=== PATIENT | female | born 1945 | race Caucasian/White ===

== ENCOUNTER 2016-03-30 10:56 | Observation (INO) | payer OTHER ==
[~2016-03-30] VITALS: Ht 154.9 cm; Wt 145.1 kg
[~2016-03-30 10:56] MED LIST: CEFAZOLIN 1000MG/55 ML D5W IV SCH; CEFAZOLIN 3000 MG/65 ML D5W IV SCH; PATIENT'S ALLERGY INFO NEEDS ENTERED SCH
[2016-03-30 11:12] VITALS: BP 120/78; PULSE 119; TEMP 36.4; O2SAT 96; BMI 61.0
[2016-03-30] MEDS ORDERED: GABA1CAP5 PO (11:50)
[2016-03-30] MEDS ORDERED: MAGN400T6 PO (11:50)
[2016-03-30] MEDS ORDERED: INSDGI SC ×2 (11:50)
[2016-03-30] MEDS ORDERED: POTA10CA28 PO (11:50)
[2016-03-30] MEDS ORDERED: DILT240C57 PO (11:50)
[2016-03-30] MEDS ORDERED: METO-217 PO (11:50)
[2016-03-30] MEDS ORDERED: ERGO500037 PO (11:50)
[2016-03-30] MEDS ORDERED: vitamin b12 INJ (11:50)
[2016-03-30] MEDS ORDERED: SACC250C11 PO (11:50)
[2016-03-30] MEDS ORDERED: MULTTAB58 PO (11:50)
[2016-03-30] MEDS ORDERED: ELQ25 (11:50)
[2016-03-30] MEDS ORDERED: ATOR-24 PO (11:50)
[2016-03-30] MEDS ORDERED: CALC500C70 PO (11:50)
[2016-03-30] MEDS ORDERED: DIPH-416 PO (11:50)
[2016-03-30] MEDS ORDERED: NTRGSL/4 UT (11:50)
[2016-03-30] MEDS ORDERED: ACET-1256 PO (11:50)
--- NOTE | 2016-03-30 12:00 | History & Physical Bridge Note ---
H&P Re-Evaluation Bridge Note: I have examined the patient, reviewed the History & Physical and in the interval since the performance of the History & Physical I have noted the following changes of clinical significance: No changes noted
--- NOTE | 2016-03-30 12:00 | Procedure Note ---
Pre-Mod Sedation Assessment General Date of Moderate Sedation: Mar 30, 2016. Vital Signs: Vital Signs Past 12 Hours Date Time Temp Pulse Resp B/P Pulse Ox O2 Delivery O2 Flow Rate FiO2 03/30/16 11:12 36.4 119 18 120/78 96 Room Air Review Cardiovascular: + tachycardia, + irregularly irregular Abdomen: soft Lungs: lungs clear Airway Class: II Pre-Sedation Airway Assessment Oral Cavity: Dentures Able to Visualize Vocal Cords: No Short Thick Neck: Yes Hx of Sleep Apnea: Yes Smoking Status: Former Smoker Mallampati Classification: Class II ASA Classification: Class II Procedure Planning Contraindications-for Mod Sed: None Yes Notes The planned sedation has been discussed with the patient and consent obtained. I have identified the patient, determined the appropriateness of sedation and have assessed the patient immediately prior to the procedure. All medicine(s) and interventions are by my order.
[2016-03-30] MEDS ORDERED: CEFAZOLIN IV 3,000 MG/65 ML D5W IV ONE (12:55)
[2016-03-30] MEDS ORDERED: LIDOCAINE HCL 1% 20 ML VIAL ONE (14:29)
[2016-03-30] MEDS ORDERED: BUPIVACAINE 0.5 % 5 MG/1 ML MPF 30ML VIAL ONE (14:29)
[2016-03-30] MEDS ORDERED: BACITRACIN 50000 UNIT VIAL ONE (14:29)
[2016-03-30] MEDS ORDERED: MIDAZOLAM HCL 5 MG/ML 1 ML VIAL ONE ×3 (14:58→17:51)
[2016-03-30] MEDS ORDERED: METOPROLOL TARTRATE 1 MG/ML VIAL ONE ×2 (14:59→15:24)
[2016-03-30] MEDS ORDERED: FENTANYL CITRATE INJ 50 MCG/1 ML 2 ML VIAL ONE ×4 (14:59→17:51)
--- NOTE | 2016-03-30 18:39 | Procedure Note ---
Post-Mod Sedation Assessment General Date of Moderate Sedation Mar 30, 2016. Vital Signs: Vital Signs Past 12 Hours Date Time Temp Pulse Resp B/P Pulse Ox O2 Delivery O2 Flow Rate FiO2 03/30/16 11:12 36.4 119 18 120/78 96 Room Air Review - Discharge Criteria Vital Signs Stable: Yes Alert/Oriented/Conversant: Yes Returned to Baseline Mental St: Yes Nausea Absent/Minimal: Yes Pain/Discomfort/Absent/Minimal: Yes Normal/Baseline Respirations: Yes Active Bleeding?: No Pt Received D/C Instructions: N/A Prescriptions Given: None Specific Proced. D/C Criteria Distal Pulses Present (Cardiac: Yes Groin site assessed-Card Cath: Yes Voided Prior To Discharge: N/A Discharged Patients Adult Escort/Transportation: N/A
[2016-03-30] MEDS ORDERED: ACETAMINOPHEN 325 MG TAB PO PRN (18:45)
[2016-03-30] MEDS ORDERED: NITROGLYCERIN 0.4 MG SL PER TAB CHARGE UT SCH (18:45)
--- NOTE | 2016-03-30 18:48 | [facility] Post Operative Brief Note ---
Immediate Operative Summary Operative Date Mar 30, 2016. Pre-Operative Diagnosis permanent af with rvr refractory to AVN blockers Post-Operative Diagnosis same; possible AVN modification Procedure(s) Performed single permanent pacemaker rate responsive under fluroscopic guidance; unsuccessful AVN ablation possible AVN modification Surgeon johann stark Inbound Ingredient Logistics Specialist Surgeon(s) none Estimated Blood Loss <20cc Findings none Fluids (cc crystalloids) 300cc Specimens none Drains none Anesthesia 14mg versed and 350mcg fentanyl Complication(s) None Disposition PCU
[2016-03-30] MEDS ORDERED: GLUCOSE 10 TABS/TUBE PO PRN (19:00)
[2016-03-30] MEDS ORDERED: GLUCOSE 40% GEL 15 GM TUBE PO PRN (19:00)
[2016-03-30] MEDS ORDERED: GLUCAGON FOR INJ 1 MG VIAL SQ PRN (19:00)
[2016-03-30] MEDS ORDERED: DEXTROSE 50% 50 ML SYR IV PRN (19:00)
[2016-03-30 19:15] VITALS: BP 129/79; TEMP 37.4; O2SAT 97; Ht 154.9 cm; Wt 145.1 kg
[2016-03-30 19:30] VITALS: BP 127/71; PULSE 87; O2SAT 96
[2016-03-30 20:00] VITALS: BP 131/69; PULSE 91; O2SAT 95
[2016-03-30 20:30] VITALS: BP 128/75; PULSE 95; O2SAT 94
[2016-03-30] MEDS ORDERED: IV FLUIDS COMPLETED PRN (20:45)
[2016-03-30 21:00] VITALS: BP 121/71; PULSE 89; O2SAT 98
[2016-03-30] MEDS ORDERED: INSULIN GLARGINE SOLOSTAR 100 UNITS/ML 3 ML PEN SC SCH (21:00)
[2016-03-30] MEDS ORDERED: LANTUS PER UNIT CHARGE SC SCH (21:00)
[2016-03-30] MEDS: APIXABAN 2.5 MG TAB PO SCH (21:15)
[2016-03-30] MEDS: OXYCODONE/ACETAMINOPHEN 5-325 TAB PO PRN (21:17)
[2016-03-30] MEDS: MAGNESIUM OXIDE 400 MG TAB PO SCH (21:18)
[2016-03-30] MEDS: GABAPENTIN 400 MG CAP PO SCH (21:18)
[2016-03-30] MEDS: INSULIN ASPART 100 UNITS/ML 3 ML PEN SC SCH (21:21)
[2016-03-31] VITALS: BP 102/66; PULSE 87; TEMP 36.4; O2SAT 94
[2016-03-31] MEDS ORDERED: NURSING VERBAL MED ORDER ONE (03:30)
[2016-03-31] MEDS ORDERED: METOPROLOL TARTRATE 1 MG/ML VIAL IV STA (03:58)
[2016-03-31] MEDS ORDERED: MAGNESIUM SULFATE 1GM / D5W 1 GM in PREMIXED IN D5W 100 ML IV STA (03:59)
[2016-03-31] MEDS: OXYCODONE/ACETAMINOPHEN 5-325 TAB PO PRN (04:04)
[2016-03-31 04:29] VITALS: BP 120/74; PULSE 93; TEMP 36.8; O2SAT 96
[2016-03-31 07:16] LABS: BUN/CREATININE RATIO 18.7 (10-20); CALCIUM 8.8 mg/dl (8.5-10.1); CREATININE 0.63 mg/dl (0.60-1.20); MAGNESIUM 1.8 mg/dl (1.8-2.4); POTASSIUM 3.9 mmol/L (3.5-5.1)
[2016-03-31 07:18] VITALS: BP 104/62; PULSE 90; TEMP 36.3; O2SAT 95
--- NOTE | 2016-03-31 07:49 | DIAGNOSTIC IMAGING REPORT ---
CHEST 2 VIEWS ROUTINE CLINICAL HISTORY: Pacemaker insertion. COMPARISON STUDY: No previous studies for comparison. FINDINGS: The tip of the single lead left subclavian pacemaker projects over the right ventricle. There is no pneumothorax. A right internal jugular central line is in place. There is mild cardiomegaly. There is no evidence of pulmonary edema. Minimal bibasilar opacities favor atelectasis. IMPRESSION: No pneumothorax status post placement of a single lead left subclavian pacemaker. Electronically signed by: Jose Alfredo Luke M.D. 03/31/2016 7:47 AM Dictated Date/Time: 03/31/2016 7:47 AM
[2016-03-31 08:00] VITALS: O2SAT 95
[2016-03-31] MEDS: MAGNESIUM OXIDE 400 MG TAB PO SCH (08:19)
[2016-03-31] MEDS: GABAPENTIN 400 MG CAP PO SCH (08:19)
[2016-03-31] MEDS: APIXABAN 2.5 MG TAB PO SCH (08:19)
[2016-03-31] MEDS: INSULIN ASPART 100 UNITS/ML 3 ML PEN SC SCH ×2 (08:27→11:41)
[2016-03-31] MEDS: MAGNESIUM SULFATE 1GM / D5W 1 GM in PREMIXED IN D5W 100 ML IV SCH ×3 (08:48→11:05)
[2016-03-31] MEDS ORDERED: MULTIVITAMIN TAB PO SCH (09:00)
[2016-03-31] MEDS ORDERED: METOPROLOL SUCC 50MG EXT REL TAB PO SCH (09:00)
[2016-03-31] MEDS ORDERED: INSULIN GLARGINE SOLOSTAR 100 UNITS/ML 3 ML PEN SC SCH (09:00)
[2016-03-31] MEDS ORDERED: ATORVASTATIN 40 MG TAB PO SCH (09:00)
[2016-03-31] MEDS ORDERED: LANTUS PER UNIT CHARGE SC SCH (09:00)
[2016-03-31] MEDS ORDERED: CALCIUM 600MG + VIT D 400 IU TAB PO SCH (09:00)
[2016-03-31] MEDS ORDERED: POTASSIUM CHLORIDE 10 MEQ TABCR PO SCH (09:00)
[2016-03-31] MEDS ORDERED: DILTIAZEM HCL 240 MG CAPCR PO SCH (09:00)
[2016-03-31 12:18] VITALS: BP 102/61; PULSE 70; TEMP 36.8; O2SAT 93
--- NOTE | 2016-03-31 12:24 | Discharge Instructions ---
Discharge Instructions Admission Reason for Admission: A-Fib W/Rvr Discharge Discharge Diagnosis / Problem: permanent AF with RVR refractory to AVN blockers Discharge Goals Goal(s): Improve function Activity Recommendations Activity Limitations: as noted below Lifting Limitations: no more than 10 pounds (with the left arm for 2 weeks; do not lift the left elbow over the left shoulder for 1 month) Exercise/Sports Limitations: as tolerated May Resume Sexual Activity: when tolerated Shower/Bathe: tomorrow Driving or Machine Use: resume 1 day after discharge . Current Hospital Diet Patient's current hospital diet: AHA Diet (Heart Healthy) Discharge Diet Recommended Diet: Regular Diet Procedures Procedures Performed: single permanent pacemaker rate responsive under fluroscopic guidance; unsuccessful AVN ablation possible AVN modification Pending Studies Studies pending at discharge: no Medical Emergencies . Who to Call and When: Medical Emergencies: If at any time you feel your situation is an emergency, please call 911 immediately. . Non-Emergent Contact Non-Emergency issues call your: Public Interviewer . . "Provider Documentation" section prepared by Nunu Kuhn. VTE Core Measure Inpt VTE Proph given/why not?: Other Anticoagulation
--- NOTE | 2016-03-31 12:29 | Discharge Summary ---
Discharge Summary Admission Date: Mar 30, 2016 at 18:43 Discharge Date: Mar 31, 2016 Discharge Disposition: Home Principal Diagnosis: permanent AF with RVR refractory to AVN blockers Secondary Diagnoses/Problems: HLD hypotension secondary to medications H/o unsuccessful CTI ablation 05/2013 DM CAD [place] 2002 medical management Morbid obesity Procedures: single chamber pacemaker; unsuccessful AVN ablation Hospital Course Pt admitted for elective single chamber ppm followed by AVN ablation due to AF with RVR despite AVN blockers; Pt underwent pacemaker without any complications ; the AVN ablation was not successful and ultimately stopped with the thought to bring the patient back in a months time. Pt monitored overnight; she does have hypomagnesium and was due to get IV mag as an outpatient today so we gave her 4 grams today. She did well with the infusions and discharged home. Total time spent on discharge = This includes examination of the patient, discharge planning, medication reconciliation, and communication with other providers. Discharge Instructions ACTIVITY RECOMMENDATIONS: * Do not raise affected arm over head for 4 weeks. SPECIAL CARE INSTRUCTIONS: * If bleeding occurs, apply direct pressure to area for 5 minutes. * Call your doctor if you have severe pain, fever, drainage or bleeding at site. * Keep dry for 48 hours. * Keep any scheduled doctor's appointment. * Implant Card - hand held device with website information given. SKIN IRRITATION: * You may experience some redness and/or swelling in the area where radiation was administered. If any skin irritation occurs, please contact your family physician. FOLLOW UP VISIT: Keep any scheduled doctor appointments.
--- NOTE | 2016-03-31 12:39 | Cardiology Follow-Up ---
Subjective Subjective Date of Service: Mar 31, 2016. Pt evaluation today including: conversation w/ patient, physical exam, chart review, lab review Pain: minimal discomfort at incision site Review of Systems Constitutional: + weakness Respiratory: No shortness of breath Cardiac: + palpitations, No chest pain, No edema Abdomen: No diarrhea Endo: + fatigue Objective Vital Signs Last Vital Signs Documentation Date Time Temp Pulse Resp B/P Pulse Ox O2 Delivery O2 Flow Rate FiO2 03/31/16 12:18 36.8 70 20 102/61 93 Room Air 03/30/16 19:00 6 Physical Exam: General Appearance: WD/WN, no apparent distress Eyes: bilateral eyes EOMI, bilateral eyes PERRL, bilateral eyes normal inspection Neck: supple, no JVD Respiratory/Chest: lungs clear, normal breath sounds Cardiovascular: no edema, no JVD, no murmur, + irregularly irregular Abdomen: soft Neurologic/Psychiatric: alert, oriented x 3 Skin: normal color, warm/dry, no rash (minimal ecchymosis at incision site; no hematoma incision intact) Assessment and Plan Impression: 1. permanent AF with RVR despited AVN blockers; on Eliquis s/p Single chamber ppm with unsuccessful AVN ablation 2. HLD 3. hypotension secondary to medications 4. H/o unsuccessful CTI ablation 05/2013 5. DM 6. CAD [place] 2002 medical management 7. Morbid obesity 8. Hypomagnesium Plan: -Ok for discharge home -Continue home medications -we will reattempt AVN ablation in a month or so -Pt not allowed to lift the left elbow over the left shoulder for 1 month; no lifting more than 10 pounds with left arm for 2 weeks -Pt to f/u with me in a month and device clinic in 7-10 days Discharge planning: home Medications: Medications Administered Medications (Trade) Dose Ordered Sig/Jessica Route Start Time Stop Time Status Last Admin Dose Admin Cefazolin Sodium (Ancef 3000 Mg/ 65 ml D5W) 3,000 mg STK-MED ONCE IV 03/30/16 12:55 03/30/16 12:56 DC 03/30/16 12:55 3,000 MG Midazolam HCl (Versed Inj) 5 mg STK-MED ONCE .ROUTE 03/30/16 14:58 03/30/16 15:00 DC 03/30/16 14:58 5 MG Fentanyl Citrate (Fentanyl Inj) 100 mcg STK-MED ONCE .ROUTE 03/30/16 14:59 03/30/16 15:00 DC 03/30/16 14:59 100 MCG Metoprolol Tartrate (Lopressor Iv) 5 mg STK-MED ONCE .ROUTE 03/30/16 14:59 03/30/16 15:00 DC 03/30/16 14:59 5 MG Metoprolol Tartrate (Lopressor Iv) 5 mg STK-MED ONCE .ROUTE 03/30/16 15:24 03/30/16 15:25 DC 03/30/16 15:24 5 MG Fentanyl Citrate (Fentanyl Inj) 100 mcg STK-MED ONCE .ROUTE 03/30/16 15:54 03/30/16 15:55 DC 03/30/16 15:54 100 MCG Midazolam HCl (Versed Inj) 5 mg STK-MED ONCE .ROUTE 03/30/16 16:09 03/30/16 16:11 DC 03/30/16 16:09 4 MG Fentanyl Citrate (Fentanyl Inj) 100 mcg STK-MED ONCE .ROUTE 03/30/16 16:40 03/30/16 16:41 DC 03/30/16 16:40 100 MCG Fentanyl Citrate (Fentanyl Inj) 100 mcg STK-MED ONCE .ROUTE 03/30/16 17:51 03/30/16 17:52 DC 03/30/16 17:51 50 MCG Midazolam HCl (Versed Inj) 5 mg STK-MED ONCE .ROUTE 03/30/16 17:51 03/30/16 17:53 DC 03/30/16 17:51 5 MG Oxycodone/ Acetaminophen (Percocet 5-325MG Tab) 1 tab for pain scale 4-6 2 t... Q6H PRN PO 03/30/16 18:45 04/13/16 18:44 03/31/16 04:04 2 TAB Apixaban (Eliquis Tab) 5 mg BID PO 03/30/16 21:00 04/29/16 20:59 03/31/16 08:19 5 MG Atorvastatin Calcium (Lipitor Tab) 40 mg DAILY PO 03/31/16 09:00 04/30/16 08:59 03/31/16 08:20 40 MG Calcium/Vitamin D (Caltrate Plus Tab) 1 tab DAILY PO 03/31/16 09:00 04/30/16 08:59 03/31/16 08:20 1 TAB Diltiazem HCl (Cardizem Cd Cap) 240 mg DAILY PO 03/31/16 09:00 04/30/16 08:59 03/31/16 08:20 240 MG Gabapentin (Neurontin Cap) 400 mg TID PO 03/30/16 21:00 04/29/16 20:59 03/31/16 08:19 400 MG Magnesium Oxide (Mag-Ox Tab) 400 mg BID PO 03/30/16 21:00 04/29/16 20:59 03/31/16 08:19 400 MG Metoprolol Succinate (Toprol Xl Tab) 50 mg DAILY PO 03/31/16 09:00 04/30/16 08:59 03/31/16 08:20 50 MG Multivitamins (Multivitamin Tab) 1 tab DAILY PO 03/31/16 09:00 04/30/16 08:59 03/31/16 08:19 1 TAB Potassium Chloride (Klor-Con M10) 10 meq DAILY PO 03/31/16 09:00 04/30/16 08:59 03/31/16 08:20 10 MEQ Insulin Glargine (Lantus Solostar Pen) 20 unit HS SC 03/30/16 21:00 04/29/16 20:59 03/30/16 21:22 20 UNIT Insulin Aspart (novoLOG ASPART) SLIDING SCALE ACHS SC 03/30/16 21:00 04/29/16 20:59 03/31/16 11:41 10 UNITS Insulin Glargine (Lantus Solostar Pen) 7 unit QAM SC 03/31/16 09:00 04/30/16 08:59 03/31/16 08:28 7 UNIT Metoprolol Tartrate 5 mg 5 mg NOW STAT IV 03/31/16 03:58 03/31/16 03:59 DC 03/31/16 04:03 5 MG Magnesium Sulfate 1 gm/Prmx 100 ml @ 100 mls/hr NOW STAT IV 03/31/16 03:59 03/31/16 04:58 DC 03/31/16 04:03 100 MLS/HR Magnesium Sulfate/ Prmx (Magnesium Sulfate/Premixed D5W) 100 ml @ 100 mls/hr Q1H IV 03/31/16 08:37 03/31/16 11:36 DC 03/31/16 11:05 100 MLS/HR Lab Results: Pacemaker Interrogation Today: Normal function ECG: AF CXR: No PTX RV Tip in place Last 24 Hours Test 03/30/16 20:33 03/31/16 06:30 03/31/16 11:32 Bedside Glucose 202 mg/dl 163 mg/dl Sodium Level 143 mmol/L Potassium Level 3.9 mmol/L Chloride Level 108 mmol/L Carbon Dioxide Level 26 mmol/L Anion Gap 9.0 mmol/L Blood Urea Nitrogen 12 mg/dl Creatinine 0.63 mg/dl Est Creatinine Clear Calc Drug Dose 115.3 ml/min Estimated GFR () 106.1 Estimated GFR (Non- 91.5 BUN/Creatinine Ratio 18.7 Random Glucose 126 mg/dl Calcium Level 8.8 mg/dl Magnesium Level 1.8 mg/dl
[2016-03-31 13:06] VITALS: BP 102/61; PULSE 70; TEMP 36.8; O2SAT 93
--- NOTE | 2016-04-08 12:23 | OPERATIVE REPORT ---
DATE OF OPERATION: 03/30/2016 PREOPERATIVE DIAGNOSIS: Permanent atrial fibrillation with rapid ventricular response refractory to AV dinora blockers. POSTOPERATIVE DIAGNOSIS: Same. PROCEDURES: Single chamber rate responsive permanent pacemaker under fluoroscopic guidance with peripheral venogram, unsuccessful AV dinora ablation. SURGEON: Dr. Nunu Kuhn. EXECUTIVE ADMIN: None. ANESTHESIA: 14 mg of Versed, 350 mcg of fentanyl. IV FLUIDS: 300 mL. IV CONTRAST: 10 mL. Start time was 1514, end time was 1837. COMPLICATIONS: None. CONDITIONS: Stable. URINE OUTPUT: Not applicable. SPECIMENS: None. FINDINGS: None. DRAINS: None. BLOOD LOSS: Less than 20 mL. INDICATIONS: This is a 70-year-old female who has a past medical history of atrial fibrillation which has now become permanent. She is on Eliquis, but continues to have rapid ventricular rate responses despite doses of AV dinora blockers, hypomagnesemia where she requires IV magnesium infusions twice a week, history of atrial flutter, status post a cavotricuspid isthmus ablation back in 2013, diabetes, coronary artery disease, status post myocardial infarction in 2002, which was medically managed, hyperlipidemia, morbid obesity. Due to the patient's permanent atrial fibrillation with rapid ventricular response and hospitalization, she was recommended a single chamber permanent pacemaker followed by an AV node ablation. CONSENT: Consent was obtained prior to the patient going into the electrophysiology lab. The patient was informed of risks, benefits, alternatives to the procedure. Risks include but not limited to sudden cardiac , cardiac arrhythmias, cerebrovascular accident, myocardial infarction, injury to the blood vessels, chamber of the heart, lungs, bleeding and infection. The patient understood these risks and agreed to the procedure as planned. Informed consent was obtained. DESCRIPTION OF THE PROCEDURE: The patient was brought into the electrophysiology lab in a fasting state. She was connected to continuous cardiac monitoring. A time-out was performed to identify patient and procedure correctly. The patient was prepped and draped over the left infraclavicular space in normal surgical standard fashion. Moderate conscious sedation was given throughout the procedure for patient's comfort level. She received prophylactic antibiotics prior to incision. [place] precautions were maintained throughout the procedure. 10 mL of 1% lidocaine were given in the left deltopectoral groove. Incision was made in the left deltopectoral groove. Blunt dissection was performed to try to identify the cephalic vein; however, none could be identified so we did a peripheral venogram using 10 mL of IV contrast diluted in 10 mL of saline followed by 20 mL flush. The axillary vein was identified and accessed via needle stick. A guidewire was inserted without any resistance. An 8-[place] sheath was then inserted over the guidewire without any resistance. The guidewire and dilator were removed and the right ventricular pacing lead was advanced into the right ventricle and positioned just right ventricular apex under fluoroscopic guidance. There was adequate pacing and sensing thresholds and no diaphragmatic stimulation with high output pacing. The 8-[place] sheath was peeled away and the lead was fixated to pectoralis muscle using 0 silk suture. The pacemaker pocket was created using blunt dissection over the pectoralis muscle within the fascia. The pocket was inspected for hemostasis and flushed with copious amounts of bacitracin saline wash. The pulse generator was then attached to the leads making sure that the pins were in appropriate position, passed the set screws and the set screws were tightened. The pulse generator was then placed in the pocket, making sure that the leads were lying flat beneath the device and a stay stitch using 0 silk suture was used to secure the device to the generator. The incision was then closed in 3-layer fashion using a 2-0 interrupted suture followed by 3-0 interrupted suture followed by a 4-0 Monocryl running stitch and Dermabond was applied. The patient was then reprepped and draped in a normal surgical standard fashion over the bilateral groins, and 10 mL of 1% lidocaine were given in the right femoral groin area. Using the modified Seldinger technique, the femoral venous access was obtained and the guidewire was inserted without any resistance. Initially we used a short 8-[place] sheath and the ablation catheter a 4 mm Blazer was used. The ablation catheter was positioned in the His bundle region and radiofrequency ablation at 60 fox was administered. We were never getting great temperature rise. The catheter was repositioned at different areas in the His bundle region. Initially it looked like we were getting some degree of block, but then after series of gil the conduction would come back. I then switched out the 8-[place] sheath for an SRO to try to see if I had more stability, again giving a series of gil in the His bundle region never truly getting any good degree of AV block. After multiple attempts despite adequate temperatures at times, the AV node ablation was deemed unsuccessful. I removed the catheter from the body and then manual compression was used to remove the sheath and create hemostasis. EQUIPMENT: 1. The pulse generator is a [employer] SR MRI SureScan 83 SR01 serial number [id number]. 2. Right ventricular lead, Medtronic 5076-58 cm, serial # [id number]. INTRAOPERATIVE TESTIN. Right ventricular R-wave were sensing 9.8 millivolts, impedance 666 ohms, threshold 0.5 volts at 0.6 milliamps. Final measurements for the ablation, the R-waves were 11.1 millivolts, impedance 570 ohms, threshold 0.5 volts at 0.4 milliseconds. Final measurements post-attempted AV dinora ablation R-waves were 7.1 millivolts, impedance 589 ohms, threshold 0.5 volts at 0.4 milliseconds. FINAL PARAMETERS: VVIR 60/130. Right ventricular amplitude 3.5 volts, pulse width 0.4 milliseconds, sensitivity is 1.2 millivolts. IMPRESSION: Successful implantation of single chamber rate responsive permanent pacemaker under fluoroscopic guidance with peripheral venogram, unsuccessful AV dinora ablation. PLAN: Monitor patient overnight, continue her AV dinora blockers, IV mag infusion. She is not to lift her left elbow over her left shoulder for 1 month. She cannot lift more than 10 pounds with the left arm for 2 weeks. She can shower in 2 days. She is to follow up in our [place] office in 7-10 days for device and wound check. I will see her in our [place] office in about 3-4 weeks' time. We will prepare to bring her back for a re-do AV dinora ablation. At that time, probably with asking my partner Dr. Espinosa to help me out if necessary. I attest to the content of the Intraoperative Record and any orders documented therein. Any exceptions are noted below. SKYLAR
--- NOTE | 2016-04-22 12:15 | EDITING REQUIRED CODING QUERY ---
SUPPORTING DIAGNOSIS NEEDED A supporting diagnosis is required for the test/procedure performed on this patient in order for us to be reimbursed by ([employer]). Please provide a supporting diagnosis for the following tests listed below next to the test name along with your signature. *If there is no additional diagnosis for this patient that would support the following test/procedure please document that below next to the test/procedure. Tests that require a supporting diagnosis: DOS 03/30/16 * Cardiac Pacemaker Placement DIAGNOSIS: Permanent AF with RVR refractory to AVN blockers will need AVN ablation Providers Signature: Thank you Anni Stoner
[2016-08-12] MEDS ORDERED: CHOL1000 PO (14:12)
[2016-08-12] MEDS ORDERED: FRS/40 PO (14:16)
[2016-08-12] MEDS ORDERED: METO25TA3 PO (14:16)
[2016-08-12] MEDS ORDERED: LISI-729 PO (14:16)
[2016-08-12] MEDS ORDERED: COEN100C7 PO (14:18)
[2016-08-12] MEDS ORDERED: INSU100I2 SC (14:58)
[2017-01-28] MEDS ORDERED: CEFAZOLIN 3000 MG/65 ML D5W IV SCH (06:00)
== END 2016-03-31 13:34 | disposition home or self-care (01) ==
LOC: C.ACU 10:56 → C.2E 18:43
PROVIDERS: ADMIT Internal Medicine; ATTEND Internal Medicine
DX: I48.2 Chronic atrial fibrillation (principal); I25.10 Atherosclerotic heart disease of native coronary artery without angina pectoris; E78.5 Hyperlipidemia, unspecified; I95.2 Hypotension due to drugs; T50.995A Adverse effect of other drugs, medicaments and biological substances, initial encounter; E83.42 Hypomagnesemia; E66.01 Morbid (severe) obesity due to excess calories; G47.33 Obstructive sleep apnea (adult) (pediatric); E53.8 Deficiency of other specified B group vitamins; E11.42 Type 2 diabetes mellitus with diabetic polyneuropathy; E55.9 Vitamin D deficiency, unspecified; Z98.84 Bariatric surgery status; I25.2 Old myocardial infarction

== ENCOUNTER 2016-05-03 09:32 | Observation (INO) | payer OTHER ==
[~2016-05-03] VITALS: Ht 154.9 cm; Wt 146.3 kg
[~2016-05-03 09:32] MED LIST changes: +ACET-1256 PO; +ATOR-24 PO; +CALC500C70 PO; -CEFAZOLIN 1000MG/55 ML D5W IV SCH; -CEFAZOLIN 3000 MG/65 ML D5W IV SCH; +DILT240C57 PO; +DIPH-416 PO; +ELQ25; +ERGO500037 PO; +GABA1CAP5 PO; +INSDGI SC; +MAGN400T6 PO; +METO-217 PO; +MULTTAB58 PO; +NTRGSL/4 UT; -PATIENT'S ALLERGY INFO NEEDS ENTERED SCH; +POTA10CA28 PO; +SACC250C11 PO; +vitamin b12 INJ
[2016-05-03 10:04] VITALS: BMI 63.0
[2016-05-03] MEDS ORDERED: TPRSR/100 PO (10:04)
[2016-05-03] MEDS ORDERED: APIX1TAB3 PO (10:04)
[2016-05-03] MEDS ORDERED: CRDCD/180 PO (10:04)
[2016-05-03 10:05] VITALS: BP 123/86; PULSE 73; TEMP 36.4; O2SAT 98
[2016-05-03] MEDS ORDERED: CALC1CHW71 PO (10:49)
[2016-05-03] MEDS ORDERED: AMIL5TAB15 PO (10:49)
[2016-05-03] MEDS ORDERED: GABA600T PO (10:49)
[2016-05-03] MEDS ORDERED: ASPCH81X PO (10:49)
--- NOTE | 2016-05-03 11:09 | History & Physical Bridge Note ---
H&P Re-Evaluation Bridge Note: I have examined the patient, reviewed the History & Physical and in the interval since the performance of the History & Physical I have noted the following changes of clinical significance: FULL UPDATED HNP DICTATED; PT HAD PPM LAST MONTH BUT THE AVN ABLATION WAS UNSUCCESSFUL; SHE RETURNS TODAY FOR REPEAT AVN ABLATION TODAY
--- NOTE | 2016-05-03 11:09 | Procedure Note ---
Pre-Mod Sedation Assessment General Date of Moderate Sedation: May 03, 2016. Vital Signs: Vital Signs Past 12 Hours Date Time Temp Pulse Resp B/P Pulse Ox O2 Delivery O2 Flow Rate FiO2 05/03/16 10:05 36.4 73 16 123/86 98 Room Air Review Cardiovascular: + tachycardia, + irregularly irregular Lungs: lungs clear Airway Class: II Pre-Sedation Airway Assessment Oral Cavity: Dentures, Dental Abnormalities Short Thick Neck: Yes Hx of Sleep Apnea: Yes Smoking Status: Never Smoker Mallampati Classification: Class II ASA Classification: Class II Procedure Planning Contraindications-for Mod Sed: None Yes Notes The planned sedation has been discussed with the patient and consent obtained. I have identified the patient, determined the appropriateness of sedation and have assessed the patient immediately prior to the procedure. All medicine(s) and interventions are by my order.
[2016-05-03] MEDS ORDERED: FENTANYL CITRATE INJ 50 MCG/1 ML 2 ML VIAL ONE (12:10)
[2016-05-03] MEDS ORDERED: MIDAZOLAM HCL 5 MG/ML 1 ML VIAL ONE (12:10)
--- NOTE | 2016-05-03 13:36 | Procedure Note ---
Post-Mod Sedation Assessment General Date of Moderate Sedation May 03, 2016. Vital Signs: Vital Signs Past 12 Hours Date Time Temp Pulse Resp B/P Pulse Ox O2 Delivery O2 Flow Rate FiO2 05/03/16 10:05 36.4 73 16 123/86 98 Room Air Review - Discharge Criteria Vital Signs Stable: Yes Alert/Oriented/Conversant: Yes Returned to Baseline Mental St: Yes Nausea Absent/Minimal: Yes Pain/Discomfort/Absent/Minimal: Yes Normal/Baseline Respirations: Yes Active Bleeding?: No Pt Received D/C Instructions: N/A Prescriptions Given: None Specific Proced. D/C Criteria Distal Pulses Present (Cardiac: N/A Groin site assessed-Card Cath: N/A Voided Prior To Discharge: N/A Discharged Patients Adult Escort/Transportation: N/A
--- NOTE | 2016-05-03 13:41 | [facility] Post Operative Brief Note ---
Immediate Operative Summary Operative Date May 03, 2016. Pre-Operative Diagnosis permanent af with rvr despite high dose ccb and bb Post-Operative Diagnosis chb with underlying af Procedure(s) Performed avn ablation and pacemaker interrogation Surgeon johann stark Supervisor Force Adjustment Surgeon(s) umer velasquez Estimated Blood Loss <5% Findings none Fluids (cc crystalloids) 60cc Specimens none Drains none Anesthesia 3mg versed and 75mcg fentanyl Complication(s) None Disposition PCU
[2016-05-03] MEDS ORDERED: NITROGLYCERIN 0.4 MG SL PER TAB CHARGE UT PRN (13:45)
[2016-05-03] MEDS ORDERED: ACETAMINOPHEN 325 MG TAB PO PRN (13:45)
--- NOTE | 2016-05-03 13:45 | Discharge Instructions ---
Discharge Instructions Admission Reason for Admission: Ablation/Atrial Flutter Discharge Discharge Diagnosis / Problem: chb Discharge Goals Goal(s): Improve function Activity Recommendations Activity Limitations: as noted below Lifting Limitations: no more than 10 pounds (for 1 week) Shower/Bathe: tomorrow Driving or Machine Use: resume 1 day after discharge . Current Hospital Diet Patient's current hospital diet: AHA Diet (Heart Healthy) Discharge Diet Recommended Diet: AHA Diet (Heart Healthy), Diabetes Type 2 Diet Procedures Procedures Performed: avn ablation and pacemaker interrogation Pending Studies Studies pending at discharge: no Medical Emergencies . Who to Call and When: Medical Emergencies: If at any time you feel your situation is an emergency, please call 911 immediately. . Non-Emergent Contact Non-Emergency issues call your: Ham Curer . . "Provider Documentation" section prepared by Nunu Kuhn. VTE Core Measure Inpt VTE Proph given/why not?: Other Anticoagulation (eliquis)
--- NOTE | 2016-05-03 13:49 | Discharge Summary ---
Discharge Summary Admission Date: 05/03/2016 Discharge Date: May 04, 2016 Discharge Disposition: Home Principal Diagnosis: permanent af with rvr s/p avn ablation Secondary Diagnoses/Problems: dm hld cad hypomagnesium arya morbid obesity h/o cti ablation Procedures: avn ablation Medication Reconciliation Continued Medications: Acetaminophen (Tylenol) 500 Mg Tab 500 MG PO, TAB Amiloride Hcl (Amiloride Hcl) 5 Mg Tab 1 TAB PO BID Apixaban (Eliquis) 5 Mg Tab 5 MG PO BID, TAB Aspirin (Aspirin Chewable) 81 Mg Chew 81 MG PO DAILY Atorvastatin (Lipitor) 40 Mg Tab 1 TAB PO DAILY for 30 Days, #30 TAB 5 Refills Calcium Carbonate-Cholecalcife (Calcium Chews) 1 Chw Chw 100 MG PO BID Diphenoxylate/Atropine (Lomotil) Tab 1 TAB PO, TAB Ergocalciferol (Vitamin D 56450 Unit) 50,000 Unit Cap 34485 UNIT PO WK, CAP Gabapentin (Neurontin) 600 Mg Tab 1 TAB PO TID for 30 Days, #90 TAB 3 Refills Insulin Glargine (Lantus) 100 Unit/Ml Inj 35 UNITS SC QPM, VIAL Insulin Glargine (Lantus) 100 Unit/Ml Inj 0 SC QAM, VIAL Magnesium Oxide (Mag-Ox) 400 Mg Tab 400 MG PO TID, TAB Multiple Vitamin (Multivitamin) 1 Tab Tab 1 TAB PO DAILY for 90 Days, #90 TAB 3 Refills Nitroglycerin (Nitrostat) 0.4 Mg Tab 0.4 MG UT PRN, BTL Saccharomyces Boulardii (Probiotic) 250 Mg Cap [vitamin b12] () INJ MONTHLY Discontinued Medications: Diltiazem Hcl Coated Beads (Cardizem Cd) 180 Mg Cap 180 MG PO DAILY, CAP Metoprolol Succinate (Metoprolol Succinate ER) 100 Mg Tabcr 1 MG PO BID Admission Information Physical Exam (per Admitting): aaox3, nad supple, no jvd irregular irregular s1/s2, no murmur cta b/l no w/r/r soft no edema no focal deficits Hospital Course pt admitted for elective avn ablation due to unsuccessful ablation last month. She underwent procedure without any complications; monitored overnight and discharged home. Total time spent on discharge = This includes examination of the patient, discharge planning, medication reconciliation, and communication with other providers. Discharge Instructions ACTIVITY RECOMMENDATIONS: It is common to feel weak and fatigue for a few days. * Do not drive or operate any motorized equipment for the next 1 day. * Limit stair usage (2 or 3 trips a day only) for the next three days. * Do not lift anything heavier than 10 pounds for the next 7 days. * Do not engage in vigorous exercise or any sports for the next five days. * You may shower the day after your procedure, but do not immerse the area for three days. Cleanse the site gently with soap and water. SPECIAL CARE INSTRUCTIONS: * You may replace the pressure dressing or band-aid the morning after the procedure. * After your procedure, it is normal to have a small bruise or small lump at the site. Examine your site daily for any change in the bruise or lump, redness, swelling, drainage or numbness. Notify your doctor if any change. BLEEDING: * If there is a small amount of bleeding at the site, lie down and apply firm pressure with a clean cloth for ten minutes. When the bleeding stops, lie quietly keeping the procedure limb straight for six hours. Notify your doctor as soon as possible. * If the bleeding does not stop after ten minutes or if there is a large amount of bleeding or spurting, call 911 immediately. Continue to lie down and hold firm pressure until help arrives. SKIN IRRITATION: * You may experience some redness and/or swelling in the area where radiation was administered. If any skin irritation occurs, please contact your family physician. FOLLOW UP VISIT: Keep any scheduled doctor appointments.
[2016-05-03 14:16] VITALS: O2SAT 98; Ht 154.9 cm; Wt 146.3 kg
--- NOTE | 2016-05-03 14:24 | HISTORY & PHYSICAL EXAMINATION ---
DATE OF ADMISSION: 05/03/2016 CHIEF COMPLAINT: Palpitations. HISTORY OF PRESENT ILLNESS: This is a 70-year-old female with a past medical history of permanent atrial fibrillation on Eliquis with rapid ventricular response refractory to Cardizem and metoprolol, history of CTI ablation for atrial flutter unsuccessful in May 2013 at [facility], diabetes, coronary artery disease status post myocardial infarction in 2002 medically managed, hyperlipidemia, hypomagnesium in which she gets IV injections twice a week for, morbid obesity, obstructive sleep apnea, trying to be compliant with her CPAP and hypotension due to medications. The patient had undergone a month ago a VVI pacemaker with ga followed by an attempted AV dinora ablation; however, it was unsuccessful. Since then, she was hospitalized at [facility] due to AFib with rapid ventricular response. Now, it has been over a month, so we brought her back to reattempt an AV node ablation. PAST MEDICAL HISTORY: As stated above. SURGICAL HISTORY: Gastric bypass and single chamber pacemaker. Bilateral oophorectomy and hysterectomy. Appendix as a child. Partial removal of a thyroid lobe. Cholecystectomy. Bowel lesions. MEDICATIONS: Lipitor, Eliquis, Cardizem, potassium, metoprolol, gabapentin, Tylenol, Lantus, magnesium oxide, vitamin B12, multivitamin and calcium, and aspirin. FAMILY HISTORY: Father had neurological disorder. Mother arthritis. Her son has hypertension. Father also had a stroke. SOCIAL HISTORY: She is , former smoker, quit back in 1965. No alcohol use. REVIEW OF SYSTEMS: All other 10-point review of systems were reviewed and essentially negative at this time. PHYSICAL EXAMINATION: VITAL SIGNS: Temperature 36.4, heart rate 73, respirations 16, blood pressure 123/86, and pulse ox 98% on room air. GENERAL: She is awake, alert and oriented x3, in no acute distress, sitting up in the bed. HEENT: Normocephalic and atraumatic. Extraocular motion is intact. Sclerae is nonicteric. Mucous membranes moist. NECK: Supple. CARDIOVASCULAR: Irregularly irregular S1 and S2. No murmur. Ventricular rate in the 90s. PULMONARY: Clear to auscultation bilaterally. No wheezes, rales or rhonchi. ABDOMEN: Soft, nontender, and nondistended. EXTREMITIES: No clubbing or cyanosis of the fingers. No edema of the bilateral lower extremities. Peripheral pulses intact. NEUROLOGIC: Grossly intact. IMPRESSION: 1. Permanent atrial fibrillation with rapid ventricular response, on Eliquis, refractory to high doses of Cardizem and metoprolol. 2. Status post VVI permanent pacemaker in preparation for an AV node ablation in March 2016. 3. History of a CTI ablation for atrial flutter that was unsuccessful at [facility] in May 2013. 4. Diabetes. 5. Coronary artery disease, status post myocardial infarction in 2002, medically managed. 6. Hyperlipidemia. 7. Hypomagnesium, on IV injections, 2 times a week. 8. Morbid obesity, status post gastric bypass with postsurgical malabsorption. 9. Hypotension due to medications. 10. Obstructive sleep apnea, trying to be compliant with her CPAP. PLAN: Redo AV node ablation, so that we can hopefully come off her Cardizem and metoprolol. I have asked Dr. Espinosa to come in and help me as I was not having difficulties with it about a month ago. She was explained the risks, benefits and alternatives to the procedure. Risks include, but not limited to sudden cardiac , cardiac arrhythmias, cerebrovascular accident, myocardial infarction, injury to the chambers of the heart or the blood vessels, bleeding and infection. The patient understood these risks and agreed to the procedure as planned. Informed consent was obtained. SKYLAR
[2016-05-03] MEDS ORDERED: GLUCAGON FOR INJ 1 MG VIAL SQ PRN (14:30)
[2016-05-03] MEDS ORDERED: GLUCOSE 10 TABS/TUBE PO PRN (14:30)
[2016-05-03] MEDS ORDERED: DEXTROSE 50% 50 ML SYR IV PRN (14:30)
[2016-05-03] MEDS ORDERED: GLUCOSE 40% GEL 15 GM TUBE PO PRN (14:30)
--- NOTE | 2016-05-03 14:32 | OPERATIVE REPORT ---
DATE OF OPERATION: 05/03/2016 PREOPERATIVE DIAGNOSIS: Permanent atrial fibrillation with rapid ventricular response despite AV dinora blockers. POSTOPERATIVE DIAGNOSIS: Atrial fibrillation with complete heart block. PROCEDURE: AV dinora ablation. SURGEON: Dr. Nunu Kuhn. MARKET RESEARCH ASSOCIATE: Khanh Espinosa. ANESTHESIA: Monitored conscious sedation, total of 3 mg of Versed and 75 mcg of fentanyl, start time 12:26 and end time 13:23. IV FLUIDS: 60 mL of normal saline. COMPLICATIONS: None. CONDITION: Stable. URINE OUTPUT: Not applicable. SPECIMENS: None. FINDINGS: None. DRAINS: None. DRAINS: None. INDICATIONS: This is a 70-year-old female with past medical history for permanent atrial fibrillation on Eliquis and high dose AV dinora blockers with minimal response, history of paroxysmal atrial flutter status post a CTI ablation in May 2013 at [facility] supposedly not successful, diabetes, hyperlipidemia, coronary artery disease; status post myocardial infarction in 2002, which was medically managed; hypomagnesemia where she gets IV mag infusions 2 times a week; obstructive sleep apnea, noncompliant with her sleep on CPAP; morbid obesity status post a gastric bypass with postsurgical malabsorption. The patient had undergone a VVI permanent pacemaker in March of this year in hopes of doing an AV-dinora ablation at the same time; however, the AV-dinora ablation was unsuccessful, so she comes back today for a repeat AV-dinora ablation with Dr. Espinosa assisting me this time. CONSENT: Consent was obtained prior to the patient going into the electrophysiology lab. The patient was explained the risks, benefits and alternatives to the procedure. Risks include but not limited to sudden cardiac , cardiac arrhythmias, cerebrovascular accident, injury to the blood vessels, chamber of the heart, bleeding and infection. The patient understood these risks and agreed to the procedure as planned. Informed consent was obtained. DESCRIPTION OF THE PROCEDURE: The patient was brought into the electrophysiology lab in a fasting state. She was connected to continuous cardiac monitoring. A timeout was performed to ensure patient's identity and procedure correctly. The patient was prepped and draped over the bilateral groins in normal surgical standard fashion. Moderate conscious sedation was given throughout the procedure for patient's comfort level. [place] precautions were maintained throughout the procedure. Using 10 mL of 1% lidocaine, bupivacaine mixture were given in the right femoral groin area. Using the modified Seldinger technique, the venous access was obtained through the right femoral vein and a guidewire was inserted without any resistance. An SRO sheath was then inserted without any resistance and under fluoroscopy advanced into the heart. The guidewire and dilator were removed. The ablation catheter which was in the Blazer Prime XP 8 mm standard curve was advanced through the sheath up into the heart. It was positioned over the His bundle with Dr. Espinosa's help. We then went on radiofrequency ablation at 70 fox getting adequate temperatures in the 50 and had successful AV block. We gave a series of 4 gil, 30 seconds each and then had a 30-minute monitor waiting period. Within this waiting period, the patient's pacemaker rate was increased to 80. At the end of the waiting period, we checked the pacemaker dropping the rate and she still had no underlying conduction. She was still paced at 30, deeming the ablation successful. The AH interval was 52 milliseconds before the ablation. The pacemaker interrogation before ablation was 2.6 millivolts, 551 ohms, threshold 0.75 volts at 0.4 milliseconds. On interrogation post-procedure, there was a measured R-wave of 5.1 millivolts, this was poly PVC, impedance 570 ohms, threshold 0.5 volts at 0.4 milliseconds. The pacemaker rate was increased from 70-80. Programmed VVIR as an AV base. CONCLUSION: Successful AV-dinora ablation. PLAN: Monitor patient overnight, 12-lead ECG, no heavy lifting or squatting for 1 week. We will titrate off her AV-dinora blockers and watch her blood pressure and give her medicine as needed. She should follow up in my [place] office in 1 month's time. I attest to the content of the Intraoperative Record and any orders documented therein. Any exceptio ns are noted below.
[2016-05-03 14:42] VITALS: BP 117/72; O2SAT 98
[2016-05-03] MEDS ORDERED: IV FLUIDS COMPLETED PRN (14:45)
[2016-05-03 15:24] VITALS: BP 122/71; PULSE 82; O2SAT 97
[2016-05-03] MEDS: GABAPENTIN 600 MG TAB PO SCH ×2 (15:31→20:47)
[2016-05-03] MEDS: MAGNESIUM OXIDE 400 MG TAB PO SCH ×2 (15:31→20:47)
[2016-05-03 20:09] VITALS: BP 148/69; PULSE 79; TEMP 36.9; O2SAT 96
[2016-05-03] MEDS: CALCIUM 600MG + VIT D 400 IU TAB PO SCH (20:47)
[2016-05-03] MEDS: APIXABAN 2.5 MG TAB PO SCH (20:47)
[2016-05-03] MEDS ORDERED: INSULIN GLARGINE PER UNIT 35 UNITS in SYRINGE 0 ML SC SCH (21:00)
[2016-05-03] MEDS ORDERED: INSULIN GLARGINE SOLOSTAR 100 UNITS/ML 3 ML PEN SC SCH (21:00)
[2016-05-04] VITALS: BP 120/63; PULSE 80; TEMP 36.7; O2SAT 94
[2016-05-04 03:26] VITALS: BP 166/70; PULSE 80; TEMP 36.6; O2SAT 94
[2016-05-04 07:25] VITALS: BP 113/55; PULSE 84; TEMP 36.4; O2SAT 94
[2016-05-04 08:55] VITALS: O2SAT 94
[2016-05-04] MEDS ORDERED: ASPIRIN 81 MG ECTAB PO SCH (09:00)
[2016-05-04] MEDS ORDERED: AMILORIDE 5 MG PO SCH (09:00)
[2016-05-04] MEDS ORDERED: MULTIVITAMIN TAB PO SCH (09:00)
[2016-05-04] MEDS ORDERED: ATORVASTATIN 40 MG TAB PO SCH (09:00)
[2016-05-04] MEDS: GABAPENTIN 600 MG TAB PO SCH ×2 (09:40→13:09)
[2016-05-04] MEDS: MAGNESIUM OXIDE 400 MG TAB PO SCH ×2 (09:41→13:09)
[2016-05-04] MEDS: CALCIUM 600MG + VIT D 400 IU TAB PO SCH (09:41)
[2016-05-04] MEDS: APIXABAN 2.5 MG TAB PO SCH (09:43)
[2016-05-04 09:52] LABS: BUN/CREATININE RATIO 15.3 (10-20); CALCIUM 8.4 mg/dl (8.5-10.1); CREATININE 0.74 mg/dl (0.60-1.20); MAGNESIUM 1.6 mg/dl (1.8-2.4); POTASSIUM 4.4 mmol/L (3.5-5.1)
--- NOTE | 2016-05-04 10:39 | Cardiology Follow-Up ---
Subjective Subjective Date of Service: May 04, 2016. Pt evaluation today including: conversation w/ patient, physical exam, chart review, lab review, review of studies Pain: none feels good Review of Systems Constitutional: No fatigue, No weakness Respiratory: No cough, No dyspnea at rest, No shortness of breath, No wheezing Cardiac: + palpitations, No chest pain, No edema Abdomen: No nausea, No vomiting Endo: No fatigue Objective Vital Signs Last Vital Signs Documentation Date Time Temp Pulse Resp B/P Pulse Ox O2 Delivery O2 Flow Rate FiO2 05/04/16 08:55 94 Room Air 05/04/16 07:25 36.4 84 20 113/55 05/03/16 13:23 3 Physical Exam: General Appearance: WD/WN, no apparent distress Eyes: bilateral eyes EOMI, bilateral eyes PERRL Neck: supple, no JVD Respiratory/Chest: lungs clear, normal breath sounds Cardiovascular: no edema, no JVD, no murmur, + irregularly irregular Abdomen: soft (right groin soft no hematoma) Neurologic/Psychiatric: alert, oriented x 3 Skin: normal color, warm/dry, no rash Assessment and Plan Impression: 1. permanent AF s/p AVN ablation and VVI ppm 2. Hypotension 3. CAD s/p [place] 2002 medically managed 4. MAHOGANY 5. Hypomagnesium 6. Morbid obesity 7. Post gastric bypass malabsorption Plan: -IV mag infusion -Stop BB and CCB -Continue anti-coagulation -ok for discharge home -f/u with me in 1 month Discharge planning: home Medications: Medications Administered Medications (Trade) Dose Ordered Sig/Jessica Route Start Time Stop Time Status Last Admin Dose Admin Midazolam HCl (Versed Inj) 5 mg STK-MED ONCE .ROUTE 05/03/16 12:10 05/03/16 12:12 DC 05/03/16 12:10 3 MG Fentanyl Citrate (Fentanyl Inj) 100 mcg STK-MED ONCE .ROUTE 05/03/16 12:10 05/03/16 12:12 DC 05/03/16 12:10 75 MCG Aspirin (Ecotrin Tab) 81 mg QAM PO 05/04/16 09:00 06/03/16 08:59 05/04/16 09:40 81 MG Atorvastatin Calcium (Lipitor Tab) 40 mg DAILY PO 05/04/16 09:00 06/03/16 08:59 05/04/16 09:41 40 MG Gabapentin (Neurontin Tab) 600 mg TID PO 05/03/16 14:00 06/02/16 13:59 05/04/16 09:40 600 MG Magnesium Oxide (Mag-Ox Tab) 400 mg TID PO 05/03/16 14:00 06/02/16 13:59 05/04/16 09:41 400 MG Multivitamins (Multivitamin Tab) 1 tab DAILY PO 05/04/16 09:00 06/03/16 08:59 05/04/16 09:41 1 TAB Apixaban (Eliquis Tab) 5 mg BID PO 05/03/16 21:00 06/02/16 20:59 05/04/16 09:43 5 MG Calcium/Vitamin D (Caltrate Plus Tab) 1 tab BID PO 05/03/16 21:00 06/02/16 20:59 05/04/16 09:41 1 TAB Insulin Glargine (Lantus Solostar Pen) 35 unit QPM SC 05/03/16 21:00 06/02/16 20:59 05/03/16 20:50 35 UNIT Non-Formulary Medication (Non-Formulary Patient'S Own Med) 1 ea DAILY PO 05/04/16 09:00 06/03/16 08:59 05/04/16 09:43 1 EA Lab Results: 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: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: BOLT LABELER with underlying AF Last 24 Hours Test 05/03/16 14:02 05/03/16 14:18 05/03/16 16:22 05/03/16 20:23 Bedside Glucose 69 mg/dl 71 mg/dl 114 mg/dl 107 mg/dl Test 05/04/16 06:34 05/04/16 06:43 05/04/16 07:28 05/04/16 09:04 Bedside Glucose 75 mg/dl 77 mg/dl 138 mg/dl Sodium Level 140 mmol/L Potassium Level 4.4 mmol/L Chloride Level 107 mmol/L Carbon Dioxide Level 23 mmol/L Anion Gap 10.0 mmol/L Blood Urea Nitrogen 11 mg/dl Creatinine 0.74 mg/dl Est Creatinine Clear Calc Drug Dose 98.7 ml/min Estimated GFR () 95.8 Estimated GFR (Non- 82.7 BUN/Creatinine Ratio 15.3 Random Glucose 127 mg/dl Calcium Level 8.4 mg/dl Magnesium Level 1.6 mg/dl
[2016-05-04 10:56] VITALS: BP 129/76; PULSE 80; TEMP 36.7; O2SAT 95
[2016-05-04] MEDS: MAGNESIUM SULFATE 1GM / D5W 1 GM in PREMIXED IN D5W 100 ML IV SCH ×2 (11:38→12:00)
[2016-05-04 14:15] VITALS: BP 129/76; PULSE 80; TEMP 36.7; O2SAT 95
[2016-08-12] MEDS ORDERED: CHOL1000 PO (14:12)
[2016-08-12] MEDS ORDERED: METO25TA3 PO (14:16)
[2016-08-12] MEDS ORDERED: LISI-729 PO (14:16)
[2016-08-12] MEDS ORDERED: FRS/40 PO (14:16)
[2016-08-12] MEDS ORDERED: COEN100C7 PO (14:18)
[2016-08-12] MEDS ORDERED: INSU100I2 SC (14:58)
== END 2016-05-04 15:01 | disposition home or self-care (01) ==
LOC: C.EP 09:32 → C.2E 13:44
PROVIDERS: ADMIT Internal Medicine; ATTEND Internal Medicine
DX: I48.2 Chronic atrial fibrillation (principal); I44.2 Atrioventricular block, complete; Z98.84 Bariatric surgery status; Z95.0 Presence of cardiac pacemaker; Z90.49 Acquired absence of other specified parts of digestive tract; Z90.710 Acquired absence of both cervix and uterus; Z90.722 Acquired absence of ovaries, bilateral; Z79.4 Long term (current) use of insulin; Z82.0 Family history of epilepsy and other diseases of the nervous system; Z82.49 Family history of ischemic heart disease and other diseases of the circulatory system; Z82.3 Family history of stroke; E78.5 Hyperlipidemia, unspecified; E83.42 Hypomagnesemia; E66.01 Morbid (severe) obesity due to excess calories; G47.33 Obstructive sleep apnea (adult) (pediatric); E11.9 Type 2 diabetes mellitus without complications

== ENCOUNTER 2016-08-24 06:41 | Observation (INO) | payer OTHER ==
[2016-08-12 14:20] VITALS: BMI 60.0
[~2016-08-24] VITALS: Ht 154.9 cm; Wt 144.0 kg
[2016-08-24] VITALS (10 sets, daily range): BP systolic 114–128; BP diastolic 54–72; PULSE 57–73; TEMP 36.3–37; O2SAT 94–98; Ht 154.9 cm; Wt 144.0 kg
[~2016-08-24 06:41] MED LIST changes: +AMIL5TAB15 PO; +APIX1TAB3 PO; +ASPCH81X PO; +CALC1CHW71 PO; -CALC500C70 PO; +CHOL1000 PO; +COEN100C7 PO; -DILT240C57 PO; -DIPH-416 PO; -ELQ25; -ERGO500037 PO; +FRS/40 PO; -GABA1CAP5 PO; +GABA600T PO; +INSU100I2 SC; +LACTATED RINGER'S 1000ML 1,000 ML IV SCH; +LISI-729 PO; -METO-217 PO; +METO25TA3 PO; -POTA10CA28 PO
[2016-08-24] MEDS ORDERED: GABA-113 PO (07:06)
[2016-08-24] MEDS ORDERED: BUPIVACAINE/EPINEPHRINE 0.5% MPF 1:200,000 30 ML VIAL ONE (07:25)
[2016-08-24] MEDS ORDERED: LIDOCAINE HCL 1% 20 ML VIAL ONE ×2 (07:25→13:51)
[2016-08-24] MEDS ORDERED: BACITRACIN 50000 UNIT VIAL ONE ×2 (07:26→13:52)
[2016-08-24] MEDS ORDERED: PROPOFOL IV EMULSION 10 MG/ML 100 ML VIAL IV ONE ×2 (07:31→13:16)
[2016-08-24] MEDS ORDERED: FENTANYL CITRATE INJ 50 MCG/1 ML 2 ML VIAL ONE ×2 (07:42→13:52)
[2016-08-24] MEDS ORDERED: MIDAZOLAM HCL 1 MG/ML 2ML VIAL ONE ×2 (07:42→13:52)
[2016-08-24] MEDS ORDERED: NURSING VERBAL MED ORDER ONE (08:15)
[2016-08-24] MEDS: SODIUM CHLORIDE 0.9% 1000ML 1,000 ML IV SCH ×2 (08:15→18:42)
[2016-08-24] MEDS ORDERED: PROPOFOL IV EMULSION 10 MG/ML 20 ML VIAL IV ONE (09:44)
[2016-08-24] MEDS ORDERED: LIDOCAINE HCL 2% 2 ML VIAL (20MG/ML) ONE (09:44)
--- NOTE | 2016-08-24 10:23 | Anesthesiology Progress Note ---
Anesthesia Post Op Note Date & Time Aug 24, 2016 at 10:22 Vital Signs Pain Intensity: 0 Vital Signs Past 12 Hours Date Time Temp Pulse Resp B/P (MAP) Pulse Ox O2 Delivery O2 Flow Rate FiO2 08/24/16 09:40 36.2 61 16 128/73 100 Nasal Cannula 2 08/24/16 09:30 60 12 131/72 100 Nasal Cannula 2 08/24/16 09:20 60 16 110/66 99 Nasal Cannula 2 08/24/16 09:16 36.4 60 16 107/60 98 Mask 10 08/24/16 07:08 36.9 71 20 127/65 (85) 98 Room Air Notes Mental Status: alert / awake / arousable, participated in evaluation Pt Amnestic to Procedure: Yes Nausea / Vomiting: adequately controlled Pain: adequately controlled Airway Patency, RR, SpO2: stable & adequate BP & HR: stable & adequate Hydration State: stable & adequate Anesthetic Complications: no major complications apparent
[2016-08-24] MEDS ORDERED: ATROPINE SULFATE 0.1 MG/ML 5ML SYR IV PRN (10:30)
[2016-08-24] MEDS ORDERED: EpHEDrine SULFATE INJ 50 MG/ML AMP IV PRN (10:30)
[2016-08-24] MEDS ORDERED: BACITRACIN OINT 0.9 GM PKT ONE (13:51)
[2016-08-24] MEDS ORDERED: KEFZOL SPECIAL PROCEDURE STOCK 1 GM ADDVIAL IV ONE (13:56)
--- NOTE | 2016-08-24 16:06 | [facility] Post Operative Brief Note ---
Immediate Operative Summary Operative Date Aug 24, 2016. Pre-Operative Diagnosis NICM Post-Operative Diagnosis SAME Procedure(s) Performed UPGRADE TO A BI-VENTRICULAR RATE RESPONSIVE PACEMAKER Surgeon DAVID ALEJANDRO Carbonation Tester Surgeon(s) NONE Estimated Blood Loss 10CC Findings NONE Specimens NONE Drains NONE Anesthesia 2MG VERSED; 100MCG FENATNYL; 600MG PROPOFOL BY ANESTHESIA Complication(s) None Disposition PCU
--- NOTE | 2016-08-24 16:11 | Discharge Instructions ---
Discharge Instructions Date of Service Aug 24, 2016. Admission Reason for Admission: W/Anes Non-Ischemic Cardiomyopathy Discharge Discharge Diagnosis / Problem: NICM Discharge Goals Goal(s): Improve function Activity Recommendations Activity Limitations: as noted below (DO NOT LIFT THE LEFT ELBOW OVER THE LEFT SHOULDER FOR 1 MONTH; DO NOT LIFT MORE THAN 10 POUNDS WITH THE LEFT ARM FOR 2 WEEKS) Lifting Limitations: no more than 10 pounds Shower/Bathe: tomorrow Driving or Machine Use: resume 1 day after discharge . Current Hospital Diet Patient's current hospital diet: Discharge Diet Recommended Diet: AHA Diet (Heart Healthy), Diabetes Type 2 Diet Procedures Procedures Performed: UPGRADE TO A BI-VENTRICULAR RATE RESPONSIVE PACEMAKER Pending Studies Studies pending at discharge: no Medical Emergencies . Who to Call and When: Medical Emergencies: If at any time you feel your situation is an emergency, please call 911 immediately. . Non-Emergent Contact Non-Emergency issues call your: Purse Framer . . "Provider Documentation" section prepared by Nunu Kuhn. . VTE Core Measure Inpt VTE Proph given/why not?: Other Anticoagulation (ELIQUIS)
[2016-08-24] MEDS ORDERED: ACETAMINOPHEN 325 MG TAB PO PRN (16:15)
[2016-08-24] MEDS ORDERED: NITROGLYCERIN 0.4 MG SL PER TAB CHARGE UT PRN (16:15)
[2016-08-24] MEDS ORDERED: PHARMACY GLYCEMIC MGMT CONSULT PRN (16:15)
--- NOTE | 2016-08-24 16:17 | Discharge Summary ---
Discharge Summary Date of Service Aug 24, 2016. Discharge Summary Admission Date: Aug 24, 2016 at 13:46 Discharge Date: Aug 25, 2016 Discharge Disposition: Home Principal Diagnosis: NICM EF 40% Secondary Diagnoses/Problems: CHB DUE TO AVN ABLATION PERMANENT ATRIAL FIBRILLATION ON ELIQUIS HYPOMAGENISIUM CAD S/P [place] 2003 CATH IN 2002 MINIMAL RCA DISEASE; LEFT SYSTEM CLEAR CHRONIC DIASTOLIC AND SYSTOLIC HEART FAILURE NYHA CLASS 3 H/O CTI ABLATION IN 2013 DUE TO ATRIAL FLUTTER DM MAHOGANY HLD Procedures: UPGRADE TO BIVENTRICULAR RATE RESPONSIVE PERMANENT PACEMAKER Medication Reconciliation Continued Medications: Acetaminophen (Tylenol) 500 Mg Tab 500 MG PO prn, TAB Amiloride Hcl (Amiloride Hcl) 5 Mg Tab 1 TAB PO BID Apixaban (Eliquis) 5 Mg Tab 5 MG PO BID, TAB PT WILL FOLLOW DIRECTIONS GIVEN BY SURGEON-HOLDING 2 DAYS BEFORE SURG Calcium Carbonate-Cholecalcife (Calcium Chews) 1 Chw Chw 100 MG PO BID Cholecalciferol (Vitamin D3) 1,000 Unit Tab 1000 UNITS PO QAM for 90 Days, TAB 3 Refills Coenzyme Q10 (Ubidecarenone) (Coq10) 100 Mg Cap 100 MG PO QAM Furosemide (Lasix) 40 Mg Tab 40 MG PO QAM, TAB Gabapentin (Neurontin) 300 Mg Cap 600 MG PO QID, CAP Insulin Glargine (Lantus) 100 Unit/Ml Inj 35 UNITS SC QPM, VIAL WILL FOLLOW ANESTHESIA INSTRUCTIONS AND TAKE REGULAR DOSE Insulin Glargine (Lantus) 100 Unit/Ml Inj 7 UNITS SC QAM, VIAL PT WILL FOLLOW ANESTHESIA INSTRUCTIONS-CHECK BLOOD SUGAR-IF 150 OR HIGHER TAKE 1/2 DOSE-IF LESS THAN 150 DON'T TAKE ANY LANTUS AM SURG Insulin Lispro (Human) (Humalog Kwikpen) 100 Unit/Ml Inj SC SLIDING SCALE Lisinopril (Zestril) 5 Mg Tab 2.5 MG PO QAM, TAB Magnesium Oxide (Mag-Ox) 400 Mg Tab 400 MG PO TID, TAB Metoprolol Succ (Toprol Xl) (Toprol-Xl) 25 Mg Tabcr 25 MG PO QAM, #30 TAB Multiple Vitamin (Multivitamin) 1 Tab Tab 1 TAB PO QAM for 90 Days, #90 TAB 3 Refills Nitroglycerin (Nitrostat) 0.4 Mg Tab 0.4 MG UT PRN, BTL Saccharomyces Boulardii (Probiotic) 250 Mg Cap 1 TAB PO QAM [vitamin b12] () INJ MONTHLY 3RD OF THE MONTH Admission Information Physical Exam (per Admitting): aaox3, NAD NC/AT, EOMI supple, no JVD irregular S1/S2, no murmur cta b/l no w/r/r soft nt/nd no edema b/l no focal deficits skin intact Hospital Course Pt admitted for elective upgrade to BiV ppm. Underwent procedure without any complications. Monitored overnight and discharged home in stable condition. Total time spent on discharge = This includes examination of the patient, discharge planning, medication reconciliation, and communication with other providers. Discharge Instructions ACTIVITY RECOMMENDATIONS: * Do not raise affected arm over head for 4 week. SPECIAL CARE INSTRUCTIONS: * If bleeding occurs, apply direct pressure to area for 5 minutes. * Call your doctor if you have severe pain, fever, drainage or bleeding at site. * Keep dry for 24 hours. * Keep any scheduled doctor's appointment. * Implant Card - hand held device with website information given. SKIN IRRITATION: * You may experience some redness and/or swelling in the area where radiation was administered. If any skin irritation occurs, please contact your family physician. FOLLOW UP VISIT: Keep any scheduled doctor appointments.
[2016-08-24] MEDS: INSULIN ASPART 100 UNITS/ML 3 ML PEN SC SCH ×2 (16:30→20:39)
[2016-08-24] MEDS ORDERED: IV FLUIDS COMPLETED PRN (16:45)
[2016-08-24] MEDS ORDERED: ONDANSETRON INJ 2 MG/ML 2 ML VIAL ONE (17:12)
[2016-08-24] MEDS ORDERED: MoRPHine SULFATE 2 MG/ML CARP ONE (17:13)
[2016-08-24] MEDS ORDERED: MoRPHine SULFATE 2 MG/ML CARP IV PRN (17:15)
[2016-08-24] MEDS ORDERED: OXYCODONE/ACETAMINOPHEN 5-325 TAB PO PRN (17:15)
[2016-08-24] MEDS ORDERED: ONDANSETRON INJ 2 MG/ML 2 ML VIAL IV PRN (17:15)
--- NOTE | 2016-08-24 17:27 | Anesthesiology Progress Note ---
Anesthesia Post Op Note Date & Time Aug 24, 2016 at 17:27 Vital Signs Pain Intensity: 8.0 Vital Signs Past 12 Hours Date Time Temp Pulse Resp B/P (MAP) Pulse Ox O2 Delivery O2 Flow Rate FiO2 08/24/16 16:30 73 16 137/79 96 Room Air 08/24/16 16:25 70 16 121/81 96 Room Air 08/24/16 16:20 75 16 121/81 96 Room Air 08/24/16 16:15 72 16 120/82 96 Room Air 08/24/16 16:10 74 16 119/78 96 Room Air 08/24/16 11:54 36.3 57 18 122/54 (76) 97 08/24/16 10:27 36.7 60 18 128/56 (80) 98 Nasal Cannula 2.0 08/24/16 09:40 36.2 61 16 128/73 100 Nasal Cannula 2 08/24/16 09:30 60 12 131/72 100 Nasal Cannula 2 08/24/16 09:20 60 16 110/66 99 Nasal Cannula 2 08/24/16 09:16 36.4 60 16 107/60 98 Mask 10 08/24/16 07:08 36.9 71 20 127/65 (85) 98 Room Air Notes Mental Status: alert / awake / arousable, participated in evaluation Pt Amnestic to Procedure: Yes Nausea / Vomiting: adequately controlled Pain: improving with treatment Airway Patency, RR, SpO2: stable & adequate BP & HR: stable & adequate Hydration State: stable & adequate Anesthetic Complications: no major complications apparent
[2016-08-24] MEDS: GABAPENTIN 600 MG TAB PO SCH ×2 (17:50→21:25)
[2016-08-24] MEDS ORDERED: GLUCAGON FOR INJ 1 MG VIAL SQ PRN (18:15)
[2016-08-24] MEDS ORDERED: GLUCOSE 40% GEL 15 GM TUBE PO PRN (18:15)
[2016-08-24] MEDS ORDERED: GLUCOSE 10 TABS/TUBE PO PRN (18:15)
[2016-08-24] MEDS ORDERED: DEXTROSE 50% 50 ML SYR IV PRN (18:15)
--- NOTE | 2016-08-24 20:17 | Pharmacy Progress Note ---
Glycemic Control Intl Consult Date of Service Aug 24, 2016. Scope Glycemic Pharmacist consulted by Dr Kuhn on 08/24/16 for glycemic control and to write orders per [facility] inpatient glycemic control protocol Objective Weight (Kilograms): 142.730 Accuchecks BSG (last 24hrs): Test 08/24/16 07:12 08/24/16 09:22 08/24/16 16:47 Bedside Glucose 132 mg/dl (70-90) 116 mg/dl (70-90) 81 mg/dl (70-90) Recent Pertinent Medications Outpatient Anti-diabetic Regimen: * Lantus * 7 units SQ q AM * 35 units SQ q PM * Humalog * sliding scale * A1c = unknown at time of consultation The patient is currently receiving: * Basal insulin: * none at this time * Bolus Insulin: * none at this time Risk Factors for Insulin Resistance: * Infection: cefazolin pre-procedure * IVF: LR --> NSS * Recent Procedure: Pacemaker insertion 08/24 * Diet: T2DM/AHA Assessment & Plan ASSESSMENT: * ADA & AACE recommend a goal blood sugar range 140-180 mg/dl for the majority of critically ill & non-critically ill patients. However, more stringent targets may be selected in individual cases. * 71 y/o diabetic with an unknown level of glycemic control as an outpatient who is admitted for observation today after pacemaker palcement. * BSG on admission (after taking last night's and this morning's Lantus is 116mg /dL) * Diet ordered * A1c ordered with AM labs * Will begin conservative SQ insulin orders (hold basal at this time as a low BSG was noted during April admission) * NovoLog SQ AC and HS based on the patient's weight and a stress of 1 since she has not received steroids. PLAN FOR INPATIENT GLYCEMIC CONTROL: * Basal insulin * forgo at this time * follow up in AM * Bolus insulin * NovoLog SQ AC and HS - CF: 30mg/dL/unit - CR: 1 unit per 10 g of CHO consumed - Goal: 140-180mg/dL per ADA recommendations * A1c with AM labs * added to discharge instructions RECOMMENDATIONS FOR DISCHARGE: * Awaited. * Please note that the plan above was derived based on current level of insulin resistance and hospital stress. These recommendations are appropriate for inpatient admission only. Plan of care upon discharge will need to be reassessed to avoid potential outpatient hypo/hyperglycemia. Thank you.
[2016-08-24] MEDS ORDERED: CHOLECALCIFEROL PO SCH (21:00)
[2016-08-24] MEDS ORDERED: AMILORIDE HCL PO SCH (21:00)
[2016-08-24] MEDS ORDERED: CALCIUM CARBONATE PO SCH (21:00)
[2016-08-24] MEDS: APIXABAN 2.5 MG TAB PO SCH (21:25)
[2016-08-24] MEDS: MAGNESIUM OXIDE 400 MG TAB PO SCH (21:25)
[2016-08-25 00:01] VITALS: O2SAT 96
[2016-08-25 00:11] VITALS: BP 115/63; PULSE 70; TEMP 36.6; O2SAT 96
[2016-08-25] MEDS: SODIUM CHLORIDE 0.9% 1000ML 1,000 ML IV SCH (00:16)
[2016-08-25 04:00] VITALS: O2SAT 96
[2016-08-25 04:15] VITALS: BP 127/60; PULSE 70; TEMP 36.8; O2SAT 94
--- NOTE | 2016-08-25 06:35 | OPERATIVE REPORT ---
DATE OF OPERATION: 08/24/2016 PREOPERATIVE DIAGNOSES: Nonischemic cardiomyopathy secondary to complete heart block with RV pacing after an AV dinora ablation. Ejection fraction initially before AV dinora ablation was normal and then after in June 2016 ejection fraction diminished 40%-45% with a hospitalization due to acute heart failure. POSTOPERATIVE DIAGNOSES: Same. PROCEDURE: Upgrade to biventricular rate responsive permanent pacemaker (insertion of an LV pacing lead). SURGEON: Dr. Nunu Kuhn. HEALTH CARE TECHNICIAN: None. ANESTHESIA: Monitored anesthetic care administered via anesthesiology. Total of 2 mg of Versed, 100 mcg of fentanyl, 600 mg of propofol again administered and supervised under anesthesiology. BLOOD LOSS: Less than 10 mL. CONDITION: Stable. URINE OUTPUT: Not applicable. SPECIMENS: None. FINDINGS: None. DRAINS: None. ANTIBIOTICS: 3 grams of Ancef. CONTRAST: 35 mL. IV FLUIDS: 600 mL. INDICATIONS: This is a 71-year-old female well known to me. She has permanent atrial fibrillation and ended up undergoing earlier this year a permanent single-chamber pacemaker and followed them by an AV dinora ablation. Unfortunately, with the complete heart block from the AV dinora ablation her ejection fraction which was normal back in July 2015 ended up starting to become diminished and in June 2016 she ended up in [facility] with an acute systolic heart failure, her ejection fraction found to be 40%-45%. For this reason, she was recommended an upgrade to a biventricular device. Her other past medical history is she has a history of atrial flutter where she underwent a CTI ablation at [facility] in May 2013, diabetes, hyperlipidemia, chronic hypomagnesemia which has improved with amiloride, obstructive sleep apnea, morbid obesity, coronary artery disease in which she had a myocardial infarction in 2002, cath in 2002 revealed only minimal RCA disease and the left-sided system was all patent. CONSENT: Consent was obtained prior to the patient going into electrophysiology lab. The patient was informed of the risks, benefits and alternatives to the procedure. Risks include but not limited to sudden cardiac , cardiac arrhythmias, cerebrovascular accident, myocardial infarction, injury to the blood vessels, chamber of the heart, lungs, bleeding or infection. The patient understood these risks and agreed to the procedure as planned. Informed consent was obtained. DESCRIPTION OF THE PROCEDURE: The patient was brought into the electrophysiology lab in a fasting state. She was connected to continuous cardiac monitoring. A time-out was performed to ensure patient's identity and procedure correctly. The patient received prophylactic antibiotics prior to incision. She was prepped and draped over the left infraclavicular space in normal surgical standard fashion. Monitored anesthetic care was given throughout the procedure for patient's comfort level via anesthesiology. [place] precautions were maintained throughout the procedure. 10 mL of 1% lidocaine, bupivacaine mixture were given over the prior surgical incision. Incision was made over the prior surgical incision and extended a little bit medially. Then a peripheral venogram using 10 mL of IV contrast diluted in 10 mL of saline followed by 20 mL flush was performed to identify the axillary vein. Axillary venous access was obtained with the needle puncture stick and a guidewire was inserted without any resistance. A 9.5-[place] sheath was then inserted over the guidewire without any resistance. Then a [employer] Mediatronic MPX Attain Command catheter was then inserted and positioned into the right atrium under fluoroscopic guidance. The dilator and the wire were removed. Then diagnostic EP coronary sinus Decapolar catheter was inserted through the Attain Command outer catheter and the coronary sinus was cannulated and Attain Command was then advanced over the EP catheter into the coronary sinus. Venogram was performed, it looked like we were actually already in maybe a branch, we pulled back a little bit more, did another venogram of the coronary sinus. Ultimately I then pulled, I think I lost venous accesses and when I went back into get coronary sinus access I ended up in a lower branch completely with, it looked like a possible separate ostia right at the branch but did have a nice posterolateral little branch. We then put a Whisper wire out into the branch and then tracked the pacing lead over it. There was acceptable pacing thresholds. There was some diaphragm at different programming but from unipolar tip to can there was no diaphragm and an acceptable threshold. The Whisper wire was removed and a stylet was placed into the lead for support. Then the Command Attain MPX catheter was slit and then the 9.5-[place] sheath was peeled away and the lead was then fixated to the pectoralis muscle using 0 silk suture. Using blunt dissection, the old pulse generator was we dissected down toil, then the capsule was disrupted using iris scissors. The old pulse generator was removed from the pocket. The pocket was then reexpanded and flushed with copious amounts of bacitracin saline wash. The old right ventricular pacing lead was then disconnected from the old pulse generator and checked intraoperatively, see below for results, then attached to the new pulse generator. The atrial port was plugged in the new pulse generator and the left ventricular lead was placed into the new pulse generator all making sure that the pins were in appropriate position, passed the set screws and the set screws were tightened. An absorbable antibiotic envelope was used and the pacemaker was placed within that, then placed within the pocket, making sure that the leads were lying flat beneath the device. Ana stat was used as well since patient is on Eliquis. The incision was closed in a 3-layer fashion using a 2-0 Vicryl interrupted suture, followed by a 3-0 Vicryl interrupted suture, followed by a 4-0 Monocryl running stitch, and Dermabond was applied, followed by a pressure dressing. EQUIPMENT: 1. Explanted generator [id number] Advisa FR MRI, serial number [id number], implanted 03/30/2016. 2. New pulse generator is a Medtronic Viva CRTP [id number] serial number [id number]. 3. Right ventricular lead model number 5076-58 cm, serial number [id number] implanted 03/30/2016. 4. Left ventricular lead is a Medtronic 4296, 88 cm serial number [id number]. 5. The right atrial plug is 6725, lot number [id number]. 6. Absorbable Tyrx antibacterial envelope, lot number [id number]. INTRAOPERATIVE TESTIN. Right ventricular lead no R-waves as the patient has complete heart block, threshold is 0.75 volts. Impedance 500. The left ventricular lead programmed unipolar LV tip to can, impedance 757 ohms, threshold 2.3 volts at 3.4 milliamps. FINAL MEASUREMENTS THROUGH THE DEVICE: 1. Right ventricular lead impedance 513 ohms, threshold 0.75 volts at 0.4 milliseconds. 2. Left ventricle programmed unipolar tip to can impedance of 772 ohms, threshold 2.5 volts at 1 millisecond. FINAL PARAMETERS: VVIR 70/110, right ventricular amplitude 2, pulse width 0.4, sensitivity 0.9 millivolts, left ventricular amplitude 4, pulse width of 1. IMPRESSION: Successful upgrade to biventricular permanent pacemaker under fluoroscopic guidance rate responsive pacemaker secondary to a nonischemic cardiomyopathy after AV dinora ablation with complete heart block. PLAN: Monitor patient overnight, 12-lead ECG, chest x-ray. She can continue her home medications. She is not allowed to lift left elbow or left shoulder for 1 month, no lifting more than 10 pounds with the left arm for 2 weeks. She should follow up in our [place] office in 7-10 days for device and wound check. I attest to the content of the Intraoperative Record and any orders documented therein. Any exceptions are noted below. MTDD
--- NOTE | 2016-08-25 06:41 | DIAGNOSTIC IMAGING REPORT ---
CHEST 2 VIEWS ROUTINE CLINICAL HISTORY: CHEST X-RAY STATUS POST PACEMAKER PLACEMENT. COMPARISON STUDY: 03/31/2016 FINDINGS: There is a right internal jugular central venous catheter with its tip projected over the atriocaval junction. There is a left subclavian central venous pacemaker. No pneumothorax is visualized. The heart is borderline enlarged. There is no failure. There are no pleural effusions.[ IMPRESSION: No active disease in the chest. No evidence of pneumothorax. Electronically signed by: Gen Gibson M.D. 08/25/2016 6:39 AM Dictated Date/Time: 08/25/2016 6:38 AM
[2016-08-25] MEDS: INSULIN ASPART 100 UNITS/ML 3 ML PEN SC SCH (07:00)
[2016-08-25] MEDS: APIXABAN 2.5 MG TAB PO SCH (07:23)
[2016-08-25] MEDS: GABAPENTIN 600 MG TAB PO SCH (07:24)
[2016-08-25] MEDS: MAGNESIUM OXIDE 400 MG TAB PO SCH (07:24)
[2016-08-25 07:27] VITALS: BP 113/60; PULSE 70; TEMP 37.1; O2SAT 92
[2016-08-25 07:45] LABS: BUN/CREATININE RATIO 22.8 (10-20); CREATININE 0.63 mg/dl (0.60-1.20)
[2016-08-25 07:47] LABS: ESTIMATED AVERAGE GLUCOSE 160 mg/dl; HA1C FLAG Normal (Normal)
--- NOTE | 2016-08-25 08:36 | Cardiology Follow-Up ---
Subjective Subjective Date of Service: Aug 25, 2016. Pt evaluation today including: conversation w/ patient, physical exam, lab review, review of studies Pain: minimal discomfort at incision site Review of Systems Constitutional: No fatigue Respiratory: No shortness of breath Cardiac: No chest pain, No edema, No palpitations Abdomen: No nausea, No diarrhea Objective Vital Signs Last Vital Signs Documentation Date Time Temp Pulse Resp B/P (MAP) Pulse Ox O2 Delivery O2 Flow Rate FiO2 08/25/16 07:27 37.1 70 18 113/60 (77) 92 08/25/16 04:15 Nasal Cannula 2.0 Physical Exam: General Appearance: WD/WN, no apparent distress Eyes: bilateral eyes PERRL, bilateral eyes EOMI Neck: no JVD Respiratory/Chest: lungs clear, normal breath sounds Cardiovascular: regular rate, rhythm, no edema, no JVD, no murmur Abdomen: soft Neurologic/Psychiatric: alert, oriented x 3 Skin: normal color, warm/dry, no rash (left pectoral incision intact and no hematoma, mild ecchymosis) Assessment and Plan Impression: 1. NICM, EF 40% due to CHB after AVN ablation with 100% RV pacing, s/p upgrade to BiV pacemaker 08/24/2016 2. Permanent AF s/p AVN ablation 3. Chronic diastolic and systolic HF, NYHA Class III 4. Obesity 5. Hypomagnesium Plan: -Ok for discharge home today -Continue home medications -Pt not allowed to lift the left elbow over the right shoulder for 1 month or lift more than 10 pounds with the left arm for 2 weeks -F/u wound check in [place] office in 7-10 days Discharge planning: home Medications: Medications Administered Medications (Trade) Dose Ordered Sig/Jessica Route Start Time Stop Time Status Last Admin Dose Admin Sodium Chloride 1,000 ml @ 100 mls/hr Q10H IV 08/24/16 08:30 09/23/16 08:29 08/25/16 00:16 100 MLS/HR Furosemide (Lasix Tab) 40 mg QAM PO 08/25/16 09:00 09/24/16 08:59 08/25/16 07:23 40 MG Gabapentin (Neurontin Tab) 600 mg QID PO 08/24/16 17:00 09/23/16 16:59 08/25/16 07:24 600 MG Lisinopril (Zestril Tab) 2.5 mg QAM PO 08/25/16 09:00 09/24/16 08:59 08/25/16 07:24 2.5 MG Magnesium Oxide (Mag-Ox Tab) 400 mg TID PO 08/24/16 21:00 09/23/16 20:59 08/25/16 07:24 400 MG Metoprolol Succinate (Toprol Xl Tab) 25 mg QAM PO 08/25/16 09:00 09/24/16 08:59 08/25/16 07:24 25 MG Multivitamins (Multivitamin Tab) 1 tab QAM PO 08/25/16 09:00 09/24/16 08:59 08/25/16 07:24 1 TAB Saccharomyces Boulardii (Florastor Cap) 250 mg QAM PO 08/25/16 09:00 09/24/16 08:59 08/25/16 07:23 250 MG Apixaban (Eliquis Tab) 5 mg BID PO 08/24/16 21:00 09/23/16 20:59 08/25/16 07:23 5 MG Oxycodone/ Acetaminophen (Percocet 5-325mg Tab) 2 tab Q6 PRN PO 08/24/16 17:15 09/07/16 17:14 08/25/16 04:31 2 TAB Ondansetron HCl (Zofran Inj) 4 mg STK-MED ONCE .ROUTE 08/24/16 17:12 08/24/16 17:13 DC 08/24/16 17:15 4 MG Morphine Sulfate (MoRPHine SULFATE INJ) 2 mg STK-MED ONCE .ROUTE 08/24/16 17:13 08/24/16 17:14 DC 08/24/16 17:18 2 MG Lab Results: Telemetry: BiV pacing underlying AF CXR: No PTX RV and LV lead in position ECG: BiV pacing underlying AF Pacemaker interrogation Stable LV lead testing since implant and values wnl Stable and normal RV lead testing Last 24 Hours Test 08/24/16 09:22 08/24/16 16:47 08/24/16 20:18 08/25/16 05:59 Bedside Glucose 116 mg/dl 81 mg/dl 112 mg/dl Sodium Level 142 mmol/L Potassium Level 4.0 mmol/L Chloride Level 106 mmol/L Carbon Dioxide Level 28 mmol/L Anion Gap 8.0 mmol/L Blood Urea Nitrogen 14 mg/dl Creatinine 0.63 mg/dl Est Creatinine Clear Calc Drug Dose 113.1 ml/min Estimated GFR () 105.3 Estimated GFR (Non- 90.9 BUN/Creatinine Ratio 22.8 Random Glucose 93 mg/dl Estimated Average Glucose 160 mg/dl Hemoglobin A1c 7.2 % Calcium Level 8.0 mg/dl Magnesium Level 2.0 mg/dl Test 08/25/16 07:09 Bedside Glucose 99 mg/dl
[2016-08-25] MEDS ORDERED: LISINOPRIL 2.5 MG TAB PO SCH (09:00)
[2016-08-25] MEDS ORDERED: SACCHAROMYCES BOUL (FLORASTOR) 250 MG CAP PO SCH (09:00)
[2016-08-25] MEDS ORDERED: FUROSEMIDE 40 MG TAB PO SCH (09:00)
[2016-08-25] MEDS ORDERED: MULTIVITAMIN TAB PO SCH (09:00)
[2016-08-25] MEDS ORDERED: METOPROLOL SUCC 25MG EXT REL TAB PO SCH (09:00)
[2016-08-25] MEDS ORDERED: NON-FORMULARY MEDICATION (Coenzyme Q10 (Ubidecarenone) (Coq10) 100 MG) PO SCH (09:00)
[2016-08-25 10:20] VITALS: BP 113/60; PULSE 70; TEMP 37.1; O2SAT 92
--- NOTE | 2016-08-25 10:26 | Anesthesiology Progress Note ---
Anesthesia Post Op Note Date & Time Aug 25, 2016 at 10:27 Vital Signs Pain Intensity: 0.0 Vital Signs Past 12 Hours Date Time Temp Pulse Resp B/P (MAP) Pulse Ox O2 Delivery O2 Flow Rate FiO2 08/25/16 10:20 37.1 70 18 92 Room Air 08/25/16 08:00 Room Air 08/25/16 07:27 37.1 70 18 113/60 (77) 92 08/25/16 04:15 36.8 70 20 127/60 (82) 94 Nasal Cannula 2.0 08/25/16 04:00 96 Room Air 2.0 08/25/16 00:11 36.6 70 18 115/63 (80) 96 Room Air 08/25/16 00:01 96 Room Air 2.0 Notes Mental Status: alert / awake / arousable, participated in evaluation Pt Amnestic to Procedure: Yes Nausea / Vomiting: adequately controlled Pain: adequately controlled Airway Patency, RR, SpO2: stable & adequate BP & HR: stable & adequate Hydration State: stable & adequate Anesthetic Complications: no major complications apparent
== END 2016-08-25 11:40 | disposition home or self-care (01) ==
LOC: C.ACU 06:41 → ENRESERV 10:41 → C.2E 13:46
PROVIDERS: ADMIT Internal Medicine; ATTEND Internal Medicine
DX: I21.4 Non-ST elevation (NSTEMI) myocardial infarction (principal); I48.2 Chronic atrial fibrillation; E11.42 Type 2 diabetes mellitus with diabetic polyneuropathy; I25.10 Atherosclerotic heart disease of native coronary artery without angina pectoris; E78.5 Hyperlipidemia, unspecified; I25.2 Old myocardial infarction; E66.01 Morbid (severe) obesity due to excess calories; Z98.84 Bariatric surgery status; E55.9 Vitamin D deficiency, unspecified; Z79.01 Long term (current) use of anticoagulants; M19.90 Unspecified osteoarthritis, unspecified site; I10 Essential (primary) hypertension; Z82.49 Family history of ischemic heart disease and other diseases of the circulatory system; Z80.1 Family history of malignant neoplasm of trachea, bronchus and lung; Z87.891 Personal history of nicotine dependence

== ENCOUNTER 2016-08-26 23:08 | Emergency (ER) | payer OTHER ==
[~2016-08-26] VITALS: Ht 154.9 cm; Wt 144.5 kg
[~2016-08-26 23:08] MED LIST changes: -ASPCH81X PO; -ATOR-24 PO; +GABA-113 PO; -GABA600T PO; -LACTATED RINGER'S 1000ML 1,000 ML IV SCH
[2016-08-26 23:12] VITALS: TEMP 36.8; Ht 154.9 cm; Wt 144.5 kg
--- NOTE | 2016-08-26 23:52 | EMERGENCY ROOM VISIT NOTE ---
History Report prepared by Kay: Min Alvarado Under the Supervision of: Dr. Dmitri Tian D.O. First contact with patient: 23:29 Chief Complaint: OTHER COMPLAINT Stated Complaint: PULSING IN BACK DOWN TO STOMACH History of Present Illness The patient is a 71 year old female who presents to the Emergency Room with complaints of an intermittent abnormal pulse-like feeling secondary to her pacemaker. She states that she received a three lead pacemaker 2 days ago. She began having some left chest heat. She then placed an ice pack on the area. She then began to have a feeling of a "pulse" move down her back and into her flank. Whenever this occurs, she states that she feels 3 pulses and then it stops. She denies any shortness of breath, chest pain, or abnormal urinary symptoms. She states that this is the second pacemaker she has had placed, and she did not have any trouble with the first one. Source of History: patient Onset: today Position: back Symptom Intensity: mild Quality: other (pulse) Timing: intermittent Associated Symptoms: No chest pain, No SOB, No urinary symptoms Review of Systems See HPI for pertinent positives and negatives. A total of ten systems were reviewed and were otherwise negative. Past Medical & Surgical Medical Problems: (1) Atrial fibrillation (2) Atrial fibrillation (3) NICM (nonischemic cardiomyopathy) Family History Omitted secondary to age. Social History Smoking Status: Never Smoker Smokeless Tobacco Use: No Drug Use: none Marital Status: Housing Status: lives with significant other Occupation Status: retired Current/Historical Medications Scheduled Acetaminophen (Tylenol), 500 MG PO prn Amiloride Hcl (Amiloride Hcl), 1 TAB PO BID Apixaban (Eliquis), 5 MG PO BID Calcium Carbonate-Cholecalcife (Calcium Chews), 100 MG PO BID Cholecalciferol (Vitamin D3), 1,000 UNITS PO QAM Coenzyme Q10 (Ubidecarenone) (Coq10), 100 MG PO QAM Furosemide (Lasix), 40 MG PO QAM Gabapentin (Neurontin), 600 MG PO QID Insulin Glargine (Lantus), 35 UNITS SC QPM Insulin Glargine (Lantus), 7 UNITS SC QAM Insulin Lispro (Human) (Humalog Kwikpen), SC SLIDING SCALE Lisinopril (Zestril), 2.5 MG PO QAM Magnesium Oxide (Mag-Ox), 400 MG PO TID Metoprolol Succ (Toprol Xl) (Toprol-Xl), 25 MG PO QAM Multiple Vitamin (Multivitamin), 1 TAB PO QAM Nitroglycerin (Nitrostat), 0.4 MG UT PRN Saccharomyces Boulardii (Probiotic), 1 TAB PO QAM [vitamin b12], INJ MONTHLY Allergies Coded Allergies: No Known Allergies (Unverified , 08/26/16) Physical Exam Vital Signs Date Time Temp Pulse Resp B/P (MAP) Pulse Ox O2 Delivery O2 Flow Rate FiO2 08/27/16 03:26 70 16 99/71 96 Room Air 08/27/16 01:52 70 16 121/62 08/27/16 00:26 70 16 111/62 96 Room Air 08/26/16 23:12 36.8 75 20 148/86 94 Room Air Physical Exam GENERAL: Awake, alert, well-appearing, in no distress HENT: Normocephalic, atraumatic. Oropharynx unremarkable. EYES: Normal conjunctiva. Sclera non-icteric. NECK: Supple. No nuchal rigidity. FROM. No JVD. RESPIRATORY: Clear to auscultation. CARDIAC: Regular rate, normal rhythm. Extremities warm and well perfused. Pulses equal. ABDOMEN: Soft, non-distended. No tenderness to palpation. No rebound or guarding. No masses. RECTAL: Deferred. MUSCULOSKELETAL: Chest examination reveals no tenderness. The back is symmetrical on inspection without obvious abnormality. There is no CVA tenderness to palpation. No joint edema. LOWER EXTREMITIES: Calves are equal size bilaterally and non-tender. No edema. No discoloration. NEURO: Normal sensorium. No sensory or motor deficits noted. SKIN: No rash or jaundice noted. Medical Decision & Procedures ER Provider Diagnostic Interpretation: X-ray: Per my interpretation. CHEST X-RAY 1 VIEW: Port present, mild cardiomegaly, pacemaker and pace wires are intact and in good position. No pneumothorax, no infiltrate. Per me. ECG Indication: palpitations Rate (beats per minute): 71 Rhythm: other (Ventricularly paced) Findings: no acute ischemic change, no ectopy ED Course 2329: The patient was evaluated in room C6. A complete history and physical exam was performed. 0039: I spoke with Dr. Taylor of [facility] at this time. They would like us to get the patient's pacemaker interrogated. 0300: I spoke with Juan Carlos from [employer] at this time. He states that there was no issue with the interrogation. 0321: I reevaluated the patient. Discussed results and discharge instructions: She verbalized understanding and agreement. The patient is ready for discharge. Medical Decision Differential diagnoses include but are not limited to; musculoskeletal chest pain, muscle spasm, pacemaker lead migration, and pacemaker malfunction. Medication Reconciliation: I attest that I have personally reviewed the patient' s current medication list. Blood pressure screening: Patient was found to have normal blood pressure on screening and does not require follow-up. Patient resting in no distress I had discussed evaluation with the on-call owner oral surgeon Dr. Pappas who asked for interrogation of the pacemaker. I've spoken with Juan Carlos from [employer] regarding the pacemaker interrogation which is normal according to him. I reevaluated patient 3:27 AM resting in no distress Consults Time Called: 34 Consulting Physician: Dr. Brandon Peralta Returned Call: [phone] Please see the ED course for more information. Additional Consults: Time Called: 030 Consulted Physician: Juan Carlos Rawls Returned Call: 030 Additional Comments: Please see ED course for more information. Impression Primary Impression: Palpitations Scribe Attestation The scribe's documentation has been prepared under my direction and personally reviewed by me in its entirety. I confirm that the note above accurately reflects all work, treatment, procedures, and medical decision making performed by me. Departure Information Dispostion Home / Self-Care Referrals Alan Bojorquez PA-C (PCP) Forms HOME CARE DOCUMENTATION FORM, IMPORTANT VISIT INFORMATION, WORK / SCHOOL INSTRUCTIONS Patient Instructions ED Palpitations, My [facility] Additional Instructions Follow-up with your owner oral surgeon this week for further evaluation
[2016-08-27 03:26] VITALS: BP 99/71; PULSE 70; O2SAT 96
--- NOTE | 2016-08-27 07:09 | DIAGNOSTIC IMAGING REPORT ---
CHEST ONE VIEW PORTABLE CLINICAL HISTORY: Chest pain. COMPARISON STUDY: Chest radiograph August 25, 2016. FINDINGS: A left subclavian pacer is in place. There is a suspected right ventricular lead as well as an additional lead which likely extends through the coronary sinus. Moderate cardiomegaly is unchanged. There is no evidence of pulmonary edema. There is no pneumothorax. A right internal jugular central line is in place. There is no consolidation. IMPRESSION: 1. No acute cardiopulmonary findings. 2. Stable cardiomegaly without evidence of pulmonary edema. Electronically signed by: Jose Alfredo Luke M.D. 08/27/2016 7:08 AM Dictated Date/Time: 08/27/2016 7:06 AM
== END 2016-08-27 01:30 | disposition home or self-care (01) ==
LOC: C.EDB 23:10
DX: R00.2 Palpitations (principal); I48.91 Unspecified atrial fibrillation; I25.5 Ischemic cardiomyopathy; Z95.0 Presence of cardiac pacemaker; Z79.01 Long term (current) use of anticoagulants